=== PATIENT | male | born 1950 | race Caucasian/White ===

== ENCOUNTER → 2021-08-23 14:55 | Outpatient (CLI) | payer MEDICARE, SELFPAY ==
--- NOTE | 2021-08-23 15:01 | XR_ITS ---
FINAL REPORT CLINICAL HISTORY: Lower respiratory infection FINDINGS: 2 views of the chest were obtained . The heart is normal in size. Patient is status post median sternotomy. The mediastinum is within normal limits. The lungs are clear. There is no pneumothorax. Osseous structures are unremarkable. IMPRESSION: No acute cardiopulmonary process. Reviewed, Interpreted and Dictated by Joseph Mahmood III, MD Transcribed by Miriam Metz Authenticated by Joseph Mahmood III, MD on 08/23/2021 04:10:57 PM [facility]
== END ==
PROVIDERS: PCP Nurse Practitioner Family; Visit Provider Specialist
DX: J40 Bronchitis, not specified as acute or chronic (principal)
CPT/HCPCS: 71046